=== PATIENT | female | born 1945 | race Caucasian/White ===

== ENCOUNTER 2016-04-23 09:55 | Outpatient (CLI) | payer MEDICARE, OTHER ==
[~2016-04-23] VITALS: Ht 162.6 cm; Wt 55.5 kg
[~2016-04-23 09:55] MED LIST: ADVAIR 250/501 DISK INH; ASPIRIN81 MG PO; BETAPACE 80 MG80 MG PO; BROVANA15 MCG/2 M INH; CORDARONE200 MG PO; COREG 3.1253.125 MG PO; FUROSEMIDE20 MG PO; HEMOCYTE PLUS C1 CAP PO; IPRAT-ALBUT 0.5-3 ML INH; K-TAB10 MEQ PO; LASIX40 MG PO; LISINOPRIL10 MG PO; LOPRESSOR25 MG PO; MULTAQ400 MG PO; PROTONIX40 MG PO; PULMICORT0.5 MG/21 UPD; ULTRAM50 MG PO; XANAX0.25 MG PO; XARELTO15 MG PO; XARELTO20 MG PO
[2016-04-23] MEDS ORDERED: MULTAQ400 MG PO (10:22)
[2016-04-23] MEDS ORDERED: ZYRTEC10 MG PO (10:23)
[2016-04-23] MEDS ORDERED: COREG6.25 MG PO (10:23)
[2016-04-23 10:28] VITALS: BP 138/79; Ht 162.6 cm; Wt 55.5 kg
--- NOTE | 2016-04-23 10:39 | NUR ---
1023- 22 GAUGE IV STARTED IN LEFT ARM X 1 STICK. FLUSHED WELL WITHOUT ANY DIFFICULTY. SECURED WITH TEGADERM 1024-VANCOMYCIN 1 GRAM STARTED VIA MED PUMP. INFUSING WITHOUT ANY DIFFICULTY PT TOLERATING WELL CALL LIGHT IN REACH
--- NOTE | 2016-04-23 10:48 | NUR ---
1045-REPORT GIVEN TO FERNANDO SIMPSON
--- NOTE | 2016-04-23 12:48 | NUR ---
1237-GENTAMICIN INFUSION COMPLETE. IV DISCONTINUED WITH CATHETER INTACT. INFUSION COMPLETED PLANNED. PT DISCHARGED HOME IN STABLE CONDITION WITH A DISCHARGE INSTRUCTION SHEET PT STATES UNDERSTANDING AND DENIES GIUSEPPE NEEDS OR CONCERNS AT THIS TIME.
--- NOTE | 2016-04-23 13:08 | NUR ---
1200-PT. RESTING QUIETLY IN BEDSIDE CHAIR, INFUSION IN PROGRESS, IV SITE WITHOUT SIGNS OF INFILTRATION NOTED. ICE WATER OFFERED TO DRINK AND WITHOUT COMPLAINTS OR OTHER NEEDS OTHERWISE NOTED.
== END 2016-04-23 12:45 | disposition home or self-care (01) ==
LOC: D.OPS 09:55
DX: Z95.2 Presence of prosthetic heart valve (principal)

== ENCOUNTER 2016-05-21 08:05 | Outpatient (CLI) | payer MEDICARE, OTHER ==
[~2016-05-21] VITALS: Ht 162.6 cm; Wt 57.6 kg
[~2016-05-21 08:05] MED LIST changes: +COREG6.25 MG PO; +ZYRTEC10 MG PO
[2016-05-21] MEDS ORDERED: LISINOPRIL10 MG PO (08:27)
[2016-05-21 08:32] VITALS: BP 129/86; Ht 162.6 cm; Wt 57.6 kg
== END 2016-05-21 11:50 | disposition home or self-care (01) ==
LOC: D.OPS 08:05
DX: I38 Endocarditis, valve unspecified (principal)

== ENCOUNTER → 2016-07-15 07:35 | Outpatient (CLI) | payer MEDICARE, OTHER ==
[2016-05-21 08:32] VITALS: BMI 21.8
== END | disposition home or self-care (01) ==
LOC: D.RT 07-05 09:00
DX: J44.9 Chronic obstructive pulmonary disease, unspecified (principal)

== ENCOUNTER 2017-05-29 10:35 | Outpatient (CLI) | payer MEDICARE, OTHER | END 2017-05-29 14:05 | disposition home or self-care (01) | LOC: D.OPS 10:35 | DX: Z95.2 Presence of prosthetic heart valve (principal) ==

== ENCOUNTER → 2017-07-02 10:36 | Outpatient (CLI) | payer MEDICARE, OTHER ==
[2017-05-29 11:58] VITALS: BMI 21.6
== END | disposition home or self-care (01) ==
LOC: D.RT 10:36
DX: J45.909 Unspecified asthma, uncomplicated (principal)

== ENCOUNTER 2018-05-27 09:08 | Outpatient (CLI) | payer MEDICARE, OTHER ==
[~2018-05-27] VITALS: Ht 162.6 cm; Wt 58.2 kg
[2018-05-27 10:06] VITALS: BP 154/90; Ht 162.6 cm; Wt 58.2 kg
== END 2018-05-27 12:11 | disposition home or self-care (01) ==
LOC: D.OPS 09:08
DX: Z98.890 Other specified postprocedural states (principal)

== ENCOUNTER 2018-12-10 08:27 | Outpatient (CLI) | payer MEDICARE, OTHER ==
[~2018-12-10] VITALS: Ht 162.6 cm; Wt 58.2 kg
[2018-12-10 09:36] VITALS: BP 125/83; Ht 162.6 cm; Wt 58.2 kg
== END 2018-12-10 11:40 | disposition home or self-care (01) ==
LOC: D.OPS 08:27
PROVIDERS: ATTEND Internal Medicine Cardiovascular Disease
DX: Z23 Encounter for immunization (principal)

== ENCOUNTER → 2019-02-18 13:13 | Outpatient (CLI) | payer MEDICARE, OTHER ==
[2018-12-10 09:36] VITALS: BMI 22.0
== END | disposition home or self-care (01) ==
LOC: D.OPS 12-10 08:30 → D.HCCECHO 13:13 → D.HCCARDIO 13:30 → D.OPS 13:30
PROVIDERS: ATTEND Internal Medicine Cardiovascular Disease
DX: I34.0 Nonrheumatic mitral (valve) insufficiency (principal)